=== PATIENT | female | born 1980 ===

== ENCOUNTER 2016-07-26 04:00 | Inpatient (IN) | payer OTHER ==
[2016-07-26] VITALS (11 sets, daily range): BP systolic 109–147; RESP 20–24; TEMP 97.4–98.1; Ht 167.6 cm; Wt 94.3 kg
[~2016-07-26] VITALS: Ht 167.6 cm; Wt 94.3 kg
[2016-07-26] MEDS ORDERED: METOCLOPRAMIDE 10 MG/2 ML VIAL IV PUSH PRN (05:55)
[2016-07-26] MEDS ORDERED: FAMOTIDINE 20 MG INJ IV PRN (05:55)
[2016-07-26] MEDS ORDERED: CEFAZOLIN (LD/OB) 100 ML IV PRN (05:55)
[2016-07-26] MEDS ORDERED: TERBUTALINE 1 MG/ML VIAL SUBQ PRN (05:55)
[2016-07-26] MEDS ORDERED: FAMOTIDINE 20 MG TAB PO PRN (05:55)
[2016-07-26] MEDS ORDERED: BUTORPHANOL 2 MG/ML VIAL IM PRN (05:55)
[2016-07-26] MEDS ORDERED: LIDOCAINE 1% 30 ML PF INFILTRATE ONE (05:55)
[2016-07-26] MEDS ORDERED: OXYTOCIN 15 UNITS/250 ML NS 250 ML IV SCH ×3 (05:55→12:15)
[2016-07-26] MEDS ORDERED: BUTORPHANOL 2 MG/ML VIAL IV PRN (05:55)
[2016-07-26] MEDS ORDERED: LIDOCAINE 1% BUFFERED 1 ML SYR INTRADERM PRN (05:55)
[2016-07-26] MEDS ORDERED: ONDANSETRON 4 MG VIAL IV PUSH PRN (05:55)
[2016-07-26] MEDS ORDERED: DEXTROSE 5% LACT RINGERS 1,000 ML IV SCH (05:55)
[2016-07-26] MEDS ORDERED: BUPIVACAINE 0.25% PF 10ML EPIDURAL ONE (07:44)
[2016-07-26] MEDS ORDERED: ROPIV/FENT 0.2%-2MCG/ML 100 ML EPIDURAL ONE (09:19)
[2016-07-26] MEDS ORDERED: FENTANYL 100 MCG/2 ML AMP ONE (09:19)
[2016-07-26] MEDS ORDERED: LACT RINGERS 500 ML IV ONE (09:45)
[2016-07-26] MEDS ORDERED: LACT RINGERS 500 ML IV PRN (09:45)
[2016-07-26] MEDS ORDERED: FENTANYL 100 MCG/2 ML AMP EPIDURAL ONE (09:45)
[2016-07-26] MEDS ORDERED: ROPIV/FENT 0.2%-2MCG/ML 100 ML EPIDURAL SCH (09:45)
[2016-07-26] MEDS ORDERED: SODIUM CHLORIDE 0.9% 500 ML IV PRN (09:45)
[2016-07-26] MEDS ORDERED: DERMOPLAST SPRAY TOPICAL PRN (12:15)
[2016-07-26] MEDS ORDERED: MEASLES,MUMPS,RUBELLA VAC SUBQ.VACC ONE (12:15)
[2016-07-26] MEDS ORDERED: ASTRINGENT MED PADS 40'S TOPICAL PRN (12:15)
[2016-07-26] MEDS ORDERED: BISACODYL 10 MG SUPP RECTAL PRN (12:15)
[2016-07-26] MEDS ORDERED: TDaP 0.5 ML VIAL IM.VACC ONE (12:15)
[2016-07-26] MEDS: Ibuprofen 600 MG TAB PO SCH ×2 (18:24→23:57)
[2016-07-26] MEDS ORDERED: **ONLY ANESTEHSIA MAY ORDER OPIATES WHILE ON EPIDURAL XX SCH (20:00)
[2016-07-27 01:29] VITALS: BP_SYST 117; RESP 20; TEMP 97.5
[2016-07-27] MEDS: Ibuprofen 600 MG TAB PO SCH ×4 (05:41→23:50)
[2016-07-27 06:27] VITALS: BP_SYST 108; RESP 20; TEMP 98.1
[2016-07-27 09:12] VITALS: BP_SYST 125; RESP 24; TEMP 97.9
[2016-07-27] MEDS: DOCUSATE SOD 100 MG CAP PO SCH (09:49)
[2016-07-27 17:43] VITALS: BP_SYST 138; RESP 18; TEMP 97.7
[2016-07-28 05:16] VITALS: BP_SYST 113; RESP 16; TEMP 98
[2016-07-28] MEDS: Ibuprofen 600 MG TAB PO SCH (05:46)
[2016-07-28 09:07] VITALS: BP_SYST 116; TEMP 98.6
[2016-07-28 09:08] VITALS: RESP 24
[2016-07-28] MEDS: DOCUSATE SOD 100 MG CAP PO SCH (09:41)
[2016-07-28 09:56] VITALS: BP_SYST 116; RESP 24; TEMP 98.6
[2016-07-28 10:26] VITALS: BP_SYST 116; RESP 24; TEMP 98.6
== END 2016-07-28 11:49 | disposition home or self-care (01) | DRG 775 ==
LOC: LD 05:25 → OB 14:55
PROVIDERS: ADMIT Obstetrics & Gynecology; ATTEND Obstetrics & Gynecology
PROC: 10E0XZZ Delivery of Products of Conception, External Approach (ICD-10-PCS; principal; 2016-07-26)
PROC: 3E033VJ Introduction of Other Hormone into Peripheral Vein, Percutaneous Approach (ICD-10-PCS; 2016-07-26)
PROC: 0W8NXZZ Division of Female Perineum, External Approach (ICD-10-PCS; 2016-07-26)
PROC: 0HQ9XZZ Repair Perineum Skin, External Approach (ICD-10-PCS; 2016-07-26)
DX: O69.81X0 Labor and delivery complicated by cord around neck, without compression, not applicable or unspecified (principal); O70.0 First degree perineal laceration during delivery; Z3A.39 39 weeks gestation of pregnancy; Z37.0 Single live birth
CPT/HCPCS: 82803; 85025